=== PATIENT | female | born 1935 | race Caucasian/White ===

== ENCOUNTER 2017-02-11 07:49 | Day surgery (SDC) | payer MEDICARE, BC ==
--- NOTE | 2017-02-04 10:20 | HISTORY AND PHYSICAL E ---
History and Physical NAME: ISHMAEL YEE : 1935 AGE: 81Y ADMITTED: 02/11/2017 ROOM: REASON FOR ADMISSION: Patient presented with exacerbation of reflux and hiatus hernia. She is for upper endoscopy. She did have a 5-cm hiatus hernia. SOCIAL HISTORY: She is a . She does not smoke. She does not drink. PAST MEDICAL HISTORY: She did have upper and lower scope in 2008 showing a large hiatus hernia with diverticulosis. She has a history of reflux and hiatus hernia. MEDICATIONS: The patient takes vitamins and fish oil. PHYSICAL EXAMINATION: GENERAL: Pleasant, alert, oriented. VITAL SIGNS: Blood pressure 130/60, pulse 80, respirations 18, temp 98. HEENT: Normal. NECK: Supple. CARDIOVASCULAR: Normal. LUNGS: Clear. ABDOMEN: Soft. NEUROLOGIC: Exam negative. CONCLUSIONS: 1. Large hiatus hernia. 2. Reflux. PLAN: 1. Gallbladder ultrasound. 2. Upper endoscopy, admit 02/11/2017. DICTATING PHYSICIAN: KYRA SOOD M.D. [id number] [id number] PHY#: [id number] ID: [id number] JOB#: [id number] ACCT: [id number] cc: >
--- NOTE | 2017-02-04 10:22 | HISTORY AND PHYSICAL E ---
History and Physical NAME: ISHMAEL YEE : 1935 AGE: 81Y ADMITTED: 02/11/2017 ROOM: CHIEF COMPLAINT: 1. Reflux. 2. Large hiatal hernia. HISTORY: Patient known to me. I saw her in 2008, where she did have large hiatal hernia, 5 cm, gastroesophageal reflux. She did have erosions in her hiatal hernia sac, no ulcers, mild duodenitis, and mild esophagitis. At this time, the patient presents for upper endoscopy. She did have colon exam showing sigmoid diverticulosis and 2 shelly polyps, too small to biopsy, polyps 2 mm; this was done in 05/2009. Now, she presents with exacerbation of reflux. The patient is an elderly female with nausea, epigastric abdominal pain. PAST MEDICAL HISTORY: 1. Anemia. 2. Hiatal hernia. FAMILY HISTORY: Father had an accident, passed. Her mom with CA of the lung. REVIEW OF SYSTEMS: CARDIAC: Negative. GASTROINTESTINAL: Hiatal hernia. Nausea. Abdominal pain. PHYSICAL EXAMINATION: END OF DICTATION. DICTATING PHYSICIAN: KYRA SOOD M.D. [id number] PHY#: [id number] ID: [id number] JOB#: [id number] ACCT: [id number] cc:KYRA SOOD M.D. >
[~2017-02-11 07:49] MED LIST: EPINEPHRINE INJ 1 MG/10 ML DISP.SYRIN ONE; FENTANYL CITRATE INJ/PF 100 MCG/2 ML AMPUL ONE; FLUMAZENIL INJ 0.5 MG/5 ML VIAL IV ONE; GLYCOPYRROLATE INJ 0.4 MG/2 ML VIAL ONE; MIDAZOLAM 2 MG/2 ML INJ ONE; NALOXONE HCL INJ/PF 0.4 MG/1 ML SDV ONE; ONDANSETRON HCL INJ/PF 4 MG/2 ML SDV ONE
[2017-02-11 09:26] VITALS: BP 123/64
[2017-02-11 09:45] LABS: ABSOLUTE BASOPHILS # (AUTO) 0.1 10^3/uL (0.0-0.2); ABSOLUTE EOSINOPHILS # (AUTO) 0.1 10^3/uL (0.0-0.6); ABSOLUTE LYMPHOCYTES (AUTO) 1.9 10^3/uL (0.5-4.7); ABSOLUTE MONOCYTES (AUTO) 0.6 10^3/uL (0.1-1.4); ABSOLUTE NEUT (AUTO) 3.1 10^3/uL (1.7-8.2); BASOPHILS % (AUTO) 0.9 % (0-2); EOSINOPHILS % (AUTO) 2.4 % (0-6); HEMATOCRIT 39.8 % (36.0-47.0); HEMOGLOBIN 13.6 g/dL (12.0-15.5); LYMPHOCYTES % (AUTO) 32.9 % (13-45); MEAN CORPUSCULAR HEMOGLOBIN 31.9 pg (27.0-33.4); MEAN CORPUSCULAR HGB CONC 34.1 g/dL (32.0-36.0); MEAN CORPUSCULAR VOLUME 93 fl (80-97); MONOCYTES % (AUTO) 9.8 % (3-13); RED BLOOD COUNT 4.26 10^6/uL (3.72-5.28); RED CELL DISTRIBUTION WIDTH 13.8 % (11.5-14.0); WHITE BLOOD COUNT 5.8 10^3/uL (4.0-10.5)
[2017-02-11 09:57] LABS: ALANINE AMINOTRANSFERASE 30 U/L (9-52); ALBUMIN 3.7 g/dL (3.5-5.0); ALKALINE PHOSPHATASE 81 U/L (38-126); AMYLASE 93 U/L (30-110); ANION GAP 10 (5-19); ASPARTATE AMINO TRANSFERASE 28 U/L (14-36); BILIRUBIN,DIRECT 0.1 mg/dL (0.0-0.4); BILIRUBIN,TOTAL 0.5 mg/dL (0.2-1.3); BLOOD UREA NITROGEN 14 mg/dL (7-20); CALCIUM 9.2 mg/dL (8.4-10.2); CARBON DIOXIDE 26 mmol/L (22-30); CHLORIDE 107 mmol/L (98-107); CREATININE RESULT 0.85 mg/dL (0.52-1.25); GLUCOSE 180 mg/dL (75-110); LIPASE 169.6 U/L (23-300); POTASSIUM 4.6 mmol/L (3.6-5.0); SODIUM 143.3 mmol/L (137-145); TOTAL PROTEIN 6.3 g/dL (6.3-8.2)
--- NOTE | 2017-02-11 14:28 | DISCHARGE SUMMARY E ---
Discharge Summary NAME: ISHMAEL YEE : 1935 AGE: 81Y ADMITTED: 02/11/2017 DISCHARGED: 02/11/2017 PROCEDURE: EGD. HISTORY AND HOSPITAL COURSE: An 81-year-old female with large hernia, exacerbation of reflux, was found to have . FINDINGS: Upper scope today shows no ulcers, no malignancy, mild esophagitis, with large hiatus hernia. DISCHARGE PLAN: 1. Soft low-residual diet. 2. Hold aspirin and nonsteroidal 4 to 5 days. 3. Awaiting biopsy/lab results. 4. Patient to be started on omeprazole 20 mg p.o. b.i.d. 5. Patient to see us in the office in the next few days. DICTATING PHYSICIAN: KYRA SOOD M.D. [id number] PHY#: [id number] ID: [id number] JOB#: [id number] ACCT: [id number] cc:KYRA SOOD M.D. >
--- NOTE | 2017-02-11 14:32 | OPERATIVE REPORT E ---
Operative Report NAME: ISHMAEL YEE : 1935 AGE: 81Y DATE OF SURGERY: 02/11/2017 ROOM: PREOPERATIVE DIAGNOSIS: PATIENT WITH REFLUX, HIATUS HERNIA. POSTOPERATIVE DIAGNOSES: 1. LARGE HIATUS HERNIA - EXTENDED FROM 31 CM TO 37 CM (A 6 CM SLIDING HIATUS HERNIA). NO EVIDENCE OF MALIGNANCY. 2. MILD ESOPHAGITIS. 3. MILD GASTRITIS. 4. MILD DUODENITIS. OPERATION: 1. ESOPHAGOSCOPY. 2. GASTROSCOPY. 3. DUODENOSCOPY. SURGEON: KYRA SOOD M.D. ANESTHESIA: Versed 2, fentanyl 50. TISSUE REMOVED OR ALTERED: Gastric biopsy - H. pylori. DESCRIPTION OF PROCEDURE: Baby scope passed under guided vision; no difficulties. Esophagoscopy: (Junction at 31 cm) - large hiatus hernia; extended 31 cm to 37 cm. No ulcers. No bleeding. No cancer. Gastroscopy: Mild gastritis. Gastric biopsy obtained - H. pylori. Duodenoscopy: Duodenal bulb shows no ulcers. Descending duodenum was not visualized. No evidence of duodenal ulcer. CONCLUSION: LARGE HIATUS HERNIA WITH MILD ESOPHAGITIS, MILD GASTRITIS. PLAN: Awaiting biopsy results. Will obtain liver functions, amylase, lipase, CBC. DICTATING PHYSICIAN: KYRA SOOD M.D. [id number] Y#: [id number] ID: [id number] JOB#: [id number] ACCT: [id number] cc:KYRA SOOD M.D., SWETANG M.D. >
== END 2017-02-11 09:38 | disposition home or self-care (01) ==
LOC: END 07:49
PROVIDERS: ATTEND Specialist
PROC: 0DB68ZX Excision of Stomach, Via Natural or Artificial Opening Endoscopic, Diagnostic (ICD-10-PCS; principal; 2017-02-11 08:00)
DX: K44.9 Diaphragmatic hernia without obstruction or gangrene (principal); K21.0 Gastro-esophageal reflux disease with esophagitis; K31.9 Disease of stomach and duodenum, unspecified; K29.80 Duodenitis without bleeding
CPT/HCPCS: 43239; 36415; 82150; 83690; 85025; 80053; 88342 ×2; 88305 ×2; J2250; J3010; J0171; J2310; J2405; J3490

== ENCOUNTER 2017-05-19 05:26 | Day surgery (SDC) | payer MEDICARE, BC ==
[2017-05-14 09:51] LABS: HEMATOCRIT 42.2 % (36.0-47.0); HEMOGLOBIN 14.1 g/dL (12.0-15.5); HGB HCT DIFFERENCE 0.1; MEAN CORPUSCULAR HEMOGLOBIN 31.6 pg (27.0-33.4); MEAN CORPUSCULAR HGB CONC 33.5 g/dL (32.0-36.0); MEAN CORPUSCULAR VOLUME 94 fl (80-97); RED BLOOD COUNT 4.47 10^6/uL (3.72-5.28); WHITE BLOOD COUNT 6.3 10^3/uL (4.0-10.5)
[2017-05-14 10:24] LABS: ALANINE AMINOTRANSFERASE 29 U/L (9-52); ALBUMIN 3.9 g/dL (3.5-5.0); ALKALINE PHOSPHATASE 82 U/L (38-126); ANION GAP 10 (5-19); ASPARTATE AMINO TRANSFERASE 26 U/L (14-36); BILIRUBIN,DIRECT 0.3 mg/dL (0.0-0.4); BILIRUBIN,TOTAL 0.7 mg/dL (0.2-1.3); BLOOD UREA NITROGEN 13 mg/dL (7-20); CALCIUM 9.4 mg/dL (8.4-10.2); CARBON DIOXIDE 27 mmol/L (22-30); CHLORIDE 107 mmol/L (98-107); CREATININE RESULT 0.89 mg/dL (0.52-1.25); GLUCOSE 105 mg/dL (75-110); POTASSIUM 5.2 mmol/L (3.6-5.0); SODIUM 143.5 mmol/L (137-145); TOTAL PROTEIN 6.9 g/dL (6.3-8.2)
--- NOTE | 2017-05-14 13:12 | EKG REPORT ---
SEVERITY:- NORMAL ECG - SINUS RHYTHM : Confirmed by: Dave Rivera MD 14-May-2017 13:12:17
[~2017-05-19 05:26] MED LIST changes: +ACETAMINOPHEN 325 MG TABLET PO PRN; +CEFAZOLIN 1 GM/D5W RTU 1 GM/50 ML RTUPB IV PRN; -EPINEPHRINE INJ 1 MG/10 ML DISP.SYRIN ONE; -FENTANYL CITRATE INJ/PF 100 MCG/2 ML AMPUL ONE; -FLUMAZENIL INJ 0.5 MG/5 ML VIAL IV ONE; -GLYCOPYRROLATE INJ 0.4 MG/2 ML VIAL ONE; +LACTATED RINGERS 1000 ML IV PRN; -MIDAZOLAM 2 MG/2 ML INJ ONE; -NALOXONE HCL INJ/PF 0.4 MG/1 ML SDV ONE; -ONDANSETRON HCL INJ/PF 4 MG/2 ML SDV ONE
[2017-05-19] MEDS ORDERED: FENTANYL CITRATE INJ/PF 100 MCG/2 ML AMPUL ONE (06:27)
[2017-05-19] MEDS ORDERED: MIDAZOLAM 2 MG/2 ML INJ ONE (06:28)
[2017-05-19] MEDS ORDERED: DEXMEDETOMIDINE INJ 80 MCG/20 ML VIAL IV ONE (06:28)
[2017-05-19] MEDS ORDERED: EPHEDRINE SULFATE INJ 50 MG/1 ML AMPULE ONE (06:28)
[2017-05-19] MEDS ORDERED: PROPOFOL INJ 200 MG/20 ML VIAL IV ONE (06:28)
[2017-05-19] MEDS ORDERED: ACETAMINOPHEN 100 ML IV ONE (06:28)
[2017-05-19] MEDS ORDERED: MORPHINE SULFATE 10 MG/ML INJ ONE (06:29)
[2017-05-19] MEDS ORDERED: BUPIVACAINE HCL 0.25 % INJ/PF (2.5 MG/1 ML) 30 ML VIAL ONE (06:45)
[2017-05-19] MEDS ORDERED: MORPHINE SULFATE 10 MG/ML INJ IV PRN (07:43)
[2017-05-19] MEDS ORDERED: FENTANYL CITRATE INJ/PF 100 MCG/2 ML AMPUL IV PRN ×3 (07:43)
[2017-05-19] MEDS ORDERED: MEPERIDINE HCL/PF INJ 25 MG/1 ML DISP.SYRIN IV PRN (07:43)
[2017-05-19] MEDS ORDERED: DIPHENHYDRAMINE HCL 50 MG/ML VIAL IV PRN (07:43)
[2017-05-19] MEDS ORDERED: PROMETHAZINE HCL INJ 25 MG/1 ML VIAL IV PRN ×2 (07:43)
[2017-05-19] MEDS ORDERED: OXYCODONE-ACETAMINOPHEN 5-325 MG TABLET PO PRN ×2 (07:43)
--- NOTE | 2017-05-19 08:16 | Operative Report ---
Operative Report DATE OF SURGERY: 05/19/17 PREOPERATIVE DIAGNOSIS: Symptomatic cholelithiasis with cholecystitis POSTOPERATIVE DIAGNOSIS: Same. Umbilical hernia with incarcerated omentum OPERATION: 1. Cholecystectomy. 2. Laparoscopic primary umbilical herniorrhaphy SURGEON: ELDER CHILEL SHAREPOINT ENGINEER: LUIS M WEBBER ANESTHESIA: GA TISSUE REMOVED OR ALTERED: 1 gallbladder contents COMPLICATIONS: None ESTIMATED BLOOD LOSS: Scant INTRAOPERATIVE FINDINGS: See below PROCEDURE: The patient was taken to the preop holding area the main operating room and general anesthesia was induced. Arms were abducted, abdomen exposed, prepped draped sterile fashion. Instrumentation set up for laparoscopic cholecystectomy Surgical plan and surgical timeout were conducted A supraumbilical vertical incision was made with a knife after quarter percent Marcaine anesthesia was injected. Veress needle was inserted peritoneal cavity pneumoperitoneum was established. Veress needle was removed, and a 5 mm port inserted and 5 mm viewing scope was inserted. Under direct visualization 3 additional ports were placed one in the soft xiphoid and 2 in the subcostal position. Findings were significant for omentum stuck to the umbilicus. On further inspection was discussed with the patient had a umbilical hernia approximately 1 /2-2 cm in diameter. This was just below the supraumbilical port site insertion. Grafts were placed on the gallbladder, and reflected up of the liver bed. Minimal adhesions between the gallbladder and the gastroduodenal fatty tissue taken down with sharp and electrocautery dissection all under direct visualization. The neck of the gallbladder its junction with the cystic duct was dissected out. [place] was opened widely. Cystic artery cystic duct and the usual location were dissected out very nicely, critical view obtained, photographs acquired, the duct and cystic artery were each respectively clipped twice proximally once distally and divided with scissors. The gallbladder was then removed from the liver bed using hook cautery dissection. Described the patient is umbilical port site uneventfully without spillage of stones or bile. We then returned to the peritoneal cavity and using combination of traction and electrocautery, we reduce the small tongue of omentum that was stuck into the umbilical hernia. We then closed the 1/2-2 cm fascial defect with 0 PDS suture using a percutaneous disposable suture passer. This effectively closed the fascial defect. Photographs were taken. We inspected the omentum to ensure there was no significant bleeding and there was none. [place] the operation was complete. We reinspected the sub-hepatic space and there is no bleeding. [place] on the cystic artery and cystic duct stump in good position. Pneumoperitoneum evacuated, wounds closed with 3-0 Vicryl benzoin and Steri-Strips. Patient tolerated the procedure well, extubated and taken to recovery in stable condition. The physician elder assistant, Ms. Webber, provided assistance during this case by: Assisting and port insertion, retracting tissue, instillation of local anesthesia and closure of skin incisions.
--- NOTE | 2017-05-19 08:20 | PDOC DISCHARGE SUMMARY ---
Discharge Summary (SDC) - Discharge Final Diagnosis: cholecystitis Date of Surgery: 05/19/17 Discharge Date: 05/19/17 Condition: Stable Treatment or Instructions: [facility] [address], [place] [address] Discharge Instructions: Laparoscopic Surgery 1. General Information: a. DO NOT DRIVE a car or operate dangerous machinery for 3-4 days or while taking narcotic pain pills. b. DO NOT consume alcohol, tranquilizers, sleeping medications or any non- prescribed medications for 24 hours unless approved by your doctor or as long as taking narcotic prescription medications. c. DO NOT make important decisions or sign any important papers for the first 24 hours after surgery. d. When discharged home the same day of surgery have a responsible person with you for the first night. 2. Activity Restrictions: 4 weeks. a. NO heavy lifting, straining abdominal muscles, bending over a lot, yard work, house work, or sports for [address]. [address] for 3-4 days or while taking __Tylenol #3_ . c. It is fine to go for walks, up and down steps, ride in a car. d. Elevate your head when sleeping/resting. 3. Treatment: a. You may shower 24 hours after surgery, no baths or swimming for 2 weeks. Remove band-aids or dressings before shower but leave paper strips (steri-strips ) on the skin to fall off on their own. If still on at postoperative visit they will be removed then. b. Drainage of fluid or blood is not unusual from an incision. If occurs, you can clean with peroxide and cotton ball daily and cover with dry gauze until the wound seals. c. If a lot of bleeding occurs, you can hold pressure with a gauze or cloth over the site for 10 minutes and it will usually stop. If bleeding continues you will need to call for possible evaluation in office or emergency room. 4. Medications: a. __Tylenol #3_ may be taken for pain as needed, one tablet every 6 hours. Stop the narcotic when able since you cannot take it and drive, and they cause constipation. You may switch to plain Advil or Aleve as you transition from the narcotic. Many adults find good pain relief with Advil 600-800 mg three times a day with meals. This can cause indigestion, ulcers, and kidney problems with long-term use. b. You should resume all normal medications unless a change is specified by your doctors. c. Antibiotic(s) if needed ( NONE) 5. Diet: Begin with clear liquids and may progress to your normal diet if not nauseated. No high fat, high protein foods the day of surgery. 6. The following may occur after laparoscopic surgery: a. Shoulder or upper back ache from retained gas that should resolve in 1-2 days b. Soreness and bruising at incision sites will resolve with time. c. Scrotal swelling (labia in women) and bruising is often seen after hernia surgery. d. Sore throat e. Fatigue may last days to weeks. f. Difficulty urinating may occur and may need to come into emergency room for urinary catheter placement. 7. Notify Physician If: a. Worsening or pain not improved with pain medication b. Persistent nausea and vomiting c. Fever above 101 d. Persistent bleeding or swelling at operative site e. Unable to urinate and uncomfortable bladder 6-8 hours after surgery 8..Follow Up Care: a. Schedule a follow up appointment with your doctor for 2 weeks. In the event of any postoperative problems or questions or you may call the office during business hours or the On-Call physician evenings and weekends at [facility]. [facility] I understand the instructions for my postoperative care as described above and a copy has been given to me. Patient/Significant Other Witness Date Prescriptions: Acetaminophen with Codeine [Tylenol #3 Tablet] 1 each PO Q6HP PRN #20 tablet PRN Reason: Discharge Diet: As Tolerated Discharge Activity: Activity As Tolerated Report the Following to Your Physician Immediately: Fever over 101 Degrees, Redness, Swelling, Warmth, Drainage-Foul Smelling
[2017-05-19] MEDS ORDERED: ACETAMINOPHEN WITH CODEINE #3 TABLET ONE (09:58)
[2017-05-19 11:17] VITALS: BP 119/68
[2017-05-19] MEDS ORDERED: GLYCOPYRROLATE INJ 0.4 MG/2 ML VIAL ONE (12:47)
[2017-05-19] MEDS ORDERED: DEXAMETHASONE SOD PHOSPHATE INJ 4 MG/1 ML VIAL ONE (12:47)
[2017-05-19] MEDS ORDERED: KETOROLAC TROMETHAMINE 60 MG/2 ML SDV ONE (12:47)
[2017-05-19] MEDS ORDERED: PHENYLEPHRINE HCL INJ/PF 10 MG/1 ML SDV ONE (12:47)
[2017-05-19] MEDS ORDERED: LIDOCAINE 2% INJ-PF (20 MG/ML) 10 ML AMPUL ONE (12:47)
[2017-05-19] MEDS ORDERED: ROCURONIUM BROMIDE INJ 50 MG/5 ML VIAL IV ONE (12:47)
[2017-05-19] MEDS ORDERED: NEOSTIGMINE METHYLSULFATE 10 MG/10 ML VIAL ONE (12:47)
[2017-05-19] MEDS ORDERED: ONDANSETRON HCL INJ/PF 4 MG/2 ML SDV ONE (12:47)
== END 2017-05-19 11:00 | disposition home or self-care (01) ==
LOC: OROUT 05:26
PROVIDERS: ATTEND Surgery
PROC: 0WQF4ZZ Repair Abdominal Wall, Percutaneous Endoscopic Approach (ICD-10-PCS; principal; 2017-05-19 07:30)
PROC: 0FT44ZZ Resection of Gallbladder, Percutaneous Endoscopic Approach (ICD-10-PCS; 2017-05-19 07:30)
DX: K80.10 Calculus of gallbladder with chronic cholecystitis without obstruction (principal); K42.0 Umbilical hernia with obstruction, without gangrene; R42 Dizziness and giddiness; Z79.899 Other long term (current) drug therapy
CPT/HCPCS: 93005; 36415 ×2; 84132; 85027; 80076; 80048; 88304 ×2; 93010; 49653; 47562; A9270; J2250; J0690; J3490 ×3; J1100; J1885; J3010; J2370; J2405; J2704; J0131; 790; J2270

== ENCOUNTER 2018-02-10 11:40 | Day surgery (SDC) | payer MEDICARE, BC ==
[~2018-02-10 11:40] MED LIST changes: -ACETAMINOPHEN 325 MG TABLET PO PRN; -CEFAZOLIN 1 GM/D5W RTU 1 GM/50 ML RTUPB IV PRN; +CHONDR SU A NA/HYALUR INTRAOC KIT (SURGICARE) ONE; +EPINEPHRINE INJ/PF 1 MG/1 ML AMPULE ONE; -LACTATED RINGERS 1000 ML IV PRN; +LIDOCAINE 1% INJ-PF (10 MG/ML) 30 ML SDV ONE
[2018-02-10] MEDS: TROPICAMIDE 1% OPH SOLN 3 ML OS PRN ×3 (11:49→12:17)
[2018-02-10] MEDS: CYCLOPENTOLATE 0.2%/PHENYLEPHRINE 1% OPH SOLN 2 ML OS PRN ×3 (11:49→12:17)
[2018-02-10] MEDS: BESIFLOXACIN HCL 0.6% OPH SUSP 5 ML BOTTLE OS PRN ×3 (11:50→12:48)
[2018-02-10] MEDS: KETOROLAC TROMETHAMINE 0.45% 4 DROP/0.4 ML DROPERETTE OS PRN ×2 (11:50→13:20)
[2018-02-10] MEDS: TETRACAINE HCL 0.5% OPH SOLN 2 ML OS PRN ×3 (11:51→12:25)
[2018-02-10] MEDS ORDERED: FENTANYL CITRATE INJ/PF 100 MCG/2 ML AMPUL ONE (12:18)
[2018-02-10] MEDS ORDERED: MIDAZOLAM 2 MG/2 ML INJ ONE (12:18)
--- NOTE | 2018-02-10 19:24 | [facility] DISCHARGE SUMMARY E ---
[facility] Discharge Summary NAME: ISHMAEL YEE AGE: 82Y ADMITTED: 02/10/2018 DISCHARGED: 02/10/2018 HOSPITAL COURSE: This is an 82-year-old patient who underwent cataract extraction complex of the left eye. DIAGNOSES: 1. CATARACT, LEFT EYE. 2. PUPIL MIOSIS REQUIRING MALYUGIN RING. The patient underwent surgery because she was having difficulty driving at night secondary to glare from headlights. DISCHARGE INSTRUCTIONS: She should be on a regular diet. No bending at the waist, no heavy lifting. She should use her Besivance, Ilevro, and Durezol at 3 p.m. and 8 p.m. and sleep with a rigid shield. I will see her for her 1 day postoperative tomorrow. DICTATING PHYSICIAN: RICK BARRIOS M.D. [id number] [id number] PHY#: [id number] ID: [id number] JOB#: [id number] ACCT: [id number] cc:RICK BARRIOS M.D. >
--- NOTE | 2018-02-10 19:24 | [facility] OPERATIVE REPORT E ---
[facility] Operative Report NAME: ISHMAEL YEE AGE: 82Y DATE OF SURGERY: 02/10/2018 ROOM: PREOPERATIVE DIAGNOSIS: 1. CATARACT, LEFT EYE. 2. PUPIL MIOSIS, LEFT EYE. POSTOPERATIVE DIAGNOSIS: 1. CATARACT, LEFT EYE. 2. PUPIL MIOSIS, LEFT EYE. OPERATION: Complex cataract extraction with use of a Malyugin ring due to very miotic pupil, intraocular lens implant of the left eye. SURGEON: RICK BARRIOS M.D. ANESTHESIA: Topical. PROCEDURE: After obtaining appropriate consent, the patient's left eye was prepped and draped in sterile fashion as well as the surgeon in a sterile manner and cataract surgery was started. First a paracentesis blade was used to make a small side-port incision. Viscoelastic was used to inflate the anterior chamber. Next a 2.4 mm incision was made with the paracentesis blade. A continuous capsulorrhexis incision was made using a cystotome and Utrata forceps. Following this hydrodissection was carried out to make the lens fully loose and mobile and it was rotated 90 degrees. Following this, a qkzjww-uii-kzspnrj technique was used to phacoemulsify the lens with a CDE of 12.21. The remaining cortex was removed with irrigation/aspiration. Provisc was instilled into the capsular bag to inflate the bag. A SN60WF, 23.0 diopter lens was placed. The remaining viscoelastic material was removed with irrigation/aspiration. Following this, a 10-0 nylon suture was used to close the incision and it was found to be watertight. Vigamox was instilled in the eye and a protective shield was placed over the eye. The patient returned to the postoperative recovery in stable condition. Prior to making the capsulorrhexis a Malyugin ring was inserted due to very poor pupillary dilatation. This was removed at the end of the case. DICTATING PHYSICIAN: RICK BARRIOS M.D. [id number] [id number] PHY#: [id number] ID: [id number] JOB#: [id number] ACCT: [id number] cc:RICK BARRIOS M.D. >
== END 2018-02-10 13:33 | disposition home or self-care (01) ==
LOC: SC 11:40
PROVIDERS: ATTEND Internal Medicine
PROC: 08RK3JZ Replacement of Left Lens with Synthetic Substitute, Percutaneous Approach (ICD-10-PCS; principal; 2018-02-10 13:00)
DX: H25.13 Age-related nuclear cataract, bilateral (principal); H57.03 Miosis; H04.123 Dry eye syndrome of bilateral lacrimal glands; H43.813 Vitreous degeneration, bilateral; D64.9 Anemia, unspecified; Z79.899 Other long term (current) drug therapy
CPT/HCPCS: 66982; V2632; J2250; J3490 ×2; A9270; J0171; J3010; 142

== ENCOUNTER 2018-03-03 07:13 | Day surgery (SDC) | payer MEDICARE, BC ==
[~2018-03-03 07:13] MED LIST changes: -CHONDR SU A NA/HYALUR INTRAOC KIT (SURGICARE) ONE; -EPINEPHRINE INJ/PF 1 MG/1 ML AMPULE ONE; +KETOROLAC TROMETHAMINE 0.45% 4 DROP/0.4 ML DROPERETTE OD PRN; -LIDOCAINE 1% INJ-PF (10 MG/ML) 30 ML SDV ONE
[2018-03-03] MEDS ORDERED: LIDOCAINE 1% INJ-PF (10 MG/ML) 30 ML SDV ONE (07:40)
[2018-03-03] MEDS ORDERED: CHONDR SU A NA/HYALUR INTRAOC KIT (SURGICARE) ONE (07:40)
[2018-03-03] MEDS ORDERED: EPINEPHRINE INJ/PF 1 MG/1 ML AMPULE ONE (07:40)
[2018-03-03] MEDS: TETRACAINE HCL 0.5% OPH SOLN 2 ML OD PRN ×3 (07:44→08:12)
[2018-03-03] MEDS: TROPICAMIDE 1% OPH SOLN 3 ML OD PRN ×3 (07:44→08:02)
[2018-03-03] MEDS: BESIFLOXACIN HCL 0.6% OPH SUSP 5 ML BOTTLE OD PRN ×3 (07:44→08:38)
[2018-03-03] MEDS: CYCLOPENTOLATE 0.2%/PHENYLEPHRINE 1% OPH SOLN 2 ML OD PRN ×3 (07:44→08:02)
[2018-03-03] MEDS ORDERED: FENTANYL CITRATE INJ/PF 100 MCG/2 ML AMPUL ONE (07:58)
[2018-03-03] MEDS ORDERED: MIDAZOLAM 2 MG/2 ML INJ ONE (07:58)
[2018-03-03] MEDS ORDERED: ONDANSETRON HCL INJ/PF 4 MG/2 ML SDV ONE (07:58)
[2018-03-03] MEDS ORDERED: LIDOCAINE 2% INJ-PF (100 MG/5 ML) SYRINGE ONE (08:49)
--- NOTE | 2018-03-03 15:18 | [facility] DISCHARGE SUMMARY E ---
[facility] Discharge Summary NAME: ISHMAEL YEE AGE: 82Y ADMITTED: 03/03/2018 DISCHARGED: 03/03/2018 HOSPITAL COURSE: This is an 82-year-old female who underwent complex cataract extraction with use of a Malyugin ring due to pupil miosis. DIAGNOSES: 1. CATARACT, RIGHT EYE. 2. PUPIL MIOSIS, RIGHT EYE. The patient underwent surgery because she was having difficulty with increased glare from headlights making it difficult to drive at night. DISCHARGE INSTRUCTIONS: She should be on a regular diet. No bending at her waist, no heavy lifting. She should use her Besivance, Ilevro, and Durezol at 3 p.m. and 8 p.m. and sleep with a rigid shield. I will see her for her 1 day postoperative tomorrow. DICTATING PHYSICIAN: RICK BARRIOS M.D. [id number] PHY#: [id number] ID: [id number] JOB#: [id number] ACCT: [id number] cc:RICK BARRIOS M.D. >
--- NOTE | 2018-03-03 15:18 | [facility] OPERATIVE REPORT E ---
[facility] Operative Report NAME: ISHMAEL YEE AGE: 82Y DATE OF SURGERY: 03/03/2018 ROOM: PREOPERATIVE DIAGNOSES: 1. CATARACT, RIGHT EYE. 2. PUPIL MIOSIS, RIGHT EYE. POSTOPERATIVE DIAGNOSES: 1. CATARACT, RIGHT EYE. 2. PUPIL MIOSIS, RIGHT EYE. OPERATION: Complex cataract extraction with use of a Malyugin ring. SURGEON: RICK BARRIOS M.D. ANESTHESIA: Topical. PROCEDURE: After obtaining appropriate consent, the patient's right eye was prepped and draped in sterile fashion as well as the surgeon in a sterile manner and cataract surgery was started. First a paracentesis blade was used to make a small side-port incision. Viscoelastic was used to inflate the anterior chamber. Next a 2.4 mm incision was made with the paracentesis blade. A continuous capsulorrhexis incision was made using a cystotome and Utrata forceps. Following this hydrodissection was carried out to make the lens fully loose and mobile and it was rotated 90 degrees. Following this, a zlnmpx-lvo-ectvcba technique was used to phacoemulsify the lens with a CDE of 7.05. The remaining cortex was removed with irrigation/aspiration. Provisc was instilled into the capsular bag to inflate the bag. A SN60WF, 23.5 diopter lens was placed. The remaining viscoelastic material was removed with irrigation/aspiration. Following this, a 10-0 nylon suture was used to close the incision and it was found to be watertight. Vigamox was instilled in the eye and a protective shield was placed over the eye. The patient returned to the postoperative recovery in stable condition. Prior to making the capsulorhexis a Malyugin ring was inserted due to poor pupillary miosis. This was removed at the end of the case. DICTATING PHYSICIAN: RICK BARRIOS M.D. [id number] [id number] PHY#: [id number] ID: [id number] JOB#: [id number] ACCT: [id number] cc:RICK BARRIOS M.D. >
== END 2018-03-03 09:52 | disposition home or self-care (01) ==
LOC: SC 07:13
PROVIDERS: ATTEND Internal Medicine
DX: H25.11 Age-related nuclear cataract, right eye (principal); H57.03 Miosis; H43.812 Vitreous degeneration, left eye; Z96.1 Presence of intraocular lens
CPT/HCPCS: 66982; V2632; J2250; J3490 ×2; A9270; J0171; J2001; J2405; 142; J3010

== ENCOUNTER → 2019-04-06 | Outpatient (CLI) | payer MEDICARE ==
[2019-04-06 11:40] LABS: ABSOLUTE BASOPHILS # (AUTO) 0.1 10^3/uL (0.0-0.2); ABSOLUTE EOSINOPHILS # (AUTO) 0.1 10^3/uL (0.0-0.6); ABSOLUTE LYMPHOCYTES (AUTO) 2.3 10^3/uL (0.5-4.7); ABSOLUTE MONOCYTES (AUTO) 0.9 10^3/uL (0.1-1.4); ABSOLUTE NEUT (AUTO) 6.4 10^3/uL (1.7-8.2); BASOPHILS % (AUTO) 1.2 % (0-2); EOSINOPHILS % (AUTO) 0.6 % (0-6); HEMATOCRIT 40.4 % (36.0-47.0); HEMOGLOBIN 13.6 g/dL (12.0-15.5); MEAN CORPUSCULAR HEMOGLOBIN 31.8 pg (27.0-33.4); MEAN CORPUSCULAR HGB CONC 33.8 g/dL (32.0-36.0); MEAN CORPUSCULAR VOLUME 94 fl (80-97); MONOCYTES % (AUTO) 9.1 % (3-13); PLATELET COUNT 189 10^3/uL (150-450); RED CELL DISTRIBUTION WIDTH 13.8 % (11.5-14.0); SEGMENTED NEUTROPHILS % (AUTO) 65.1 % (42-78); TOTAL CELLS COUNTED % (AUTO) 100 %; WHITE BLOOD COUNT 9.8 10^3/uL (4.0-10.5)
--- NOTE | 2019-04-06 12:06 | RADIOLOGY REPORT (SQ) ---
EXAM DESCRIPTION: CT ABD/PELVIS WITH IV ONLY COMPLETED DATE/TIME: 04/06/2019 11:22 am REASON FOR STUDY: R10.32 LLQ PAIN R10.32 LEFT LOWER QUADRANT PAIN COMPARISON: None. TECHNIQUE: CT scan of the abdomen and pelvis performed using helical scanning technique with dynamic intravenous contrast injection. No oral contrast. Images reviewed with lung, soft tissue, and bone windows. Reconstructed coronal and sagittal MPR images reviewed. Delayed images for evaluation of the urinary system also acquired. All images stored on PACS. All CT scanners at this facility use dose modulation, iterative reconstruction, and/or weight based d osing when appropriate to reduce radiation dose to as low as reasonably achievable (ALARA). [facility]: Dose Right [facility]: CareDose [facility]: Dose Right [facility]: Teradose 4D [facility]: 5 CUPS and some sugar CONTRAST TYPE AND DOSE: contrast/concentration: Isovue 350.00 mg/ml; Total Contrast Delivered: 77.0 ml; Total Saline Delivered: 67.0 ml RENAL FUNCTION: Creatinine 0.9 RADIATION DOSE: CT Rad equipment meets quality standard of care and radiation dose reduction techniq ues were employed. CTDIvol: 9.3 - 10.6 mGy. DLP: 983 mGy-cm.. LIMITATIONS: None. FINDINGS: LOWER CHEST: Large hiatal hernia. LIVER: Normal size. No masses. No dilated ducts. SPLEEN: Normal size. No focal lesions. PANCREAS: No masses. No significant calcifications. No adjacent inflammation or peripancreatic fluid collections. Pancreatic duct not dilated. GALLBLADDER: Surgically absent. ADRENAL GLANDS: No significant masses or asymmetry. RIGHT KIDNEY AND URETER: No solid masses. No significant calcifications. No hydronephrosis or hyd roureter. LEFT KIDNEY AND URETER: No solid masses. No significant calcifications. No hydronephrosis or hydr oureter. AORTA AND VESSELS: No aneurysm. No dissection. Renal arteries, SMA, celiac without stenosis. RETROPERITONEUM: No retroperitoneal adenopathy, hemorrhage or masses. BOWEL AND PERITONEAL CAVITY: No masses or inflammatory changes. No free fluid or peritoneal masses. APPENDIX: Normal. PELVIS: No mass. No free fluid. Normal bladder. ABDOMINAL WALL: Small ventral hernia contains only fat. BONES: Scoliosis, degenerative disc disease. Spondylosis. OTHER: No other significant finding. IMPRESSION: Large hiatal hernia. Small ventral hernia containing fat. Osseous findings as describe d. COMMENT: Attempted unsuccessfully to call the report to the ordering physician at 2355 hours on this date. TECHNICAL DOCUMENTATION: JOB ID: [id number] Quality ID # [id number]: Final reports with documentation of one or more dose reduction techniques (e.g., Au tomated exposure control, adjustment of the mA and/or kV according to patient size, use of iterative reconstruction technique) 2010 [employer]- All Rights Reserved Reading location - IP/workstation name: [email or web address]
[2019-04-06 12:09] LABS: ALANINE AMINOTRANSFERASE 26 U/L (9-52); ALBUMIN 3.7 g/dL (3.5-5.0); ALKALINE PHOSPHATASE 89 U/L (38-126); ANION GAP 9 (5-19); ASPARTATE AMINO TRANSFERASE 24 U/L (14-36); BILIRUBIN,DIRECT 0.2 mg/dL (0.0-0.4); BILIRUBIN,TOTAL 0.4 mg/dL (0.2-1.3); BLOOD UREA NITROGEN 13 mg/dL (7-20); CALCIUM 9.9 mg/dL (8.4-10.2); CARBON DIOXIDE 25 mmol/L (22-30); CHLORIDE 109 mmol/L (98-107); GLUCOSE 111 mg/dL (75-110); LIPASE 387.1 U/L (23-300); POTASSIUM 4.4 mmol/L (3.6-5.0); SODIUM 142.9 mmol/L (137-145); TOTAL PROTEIN 6.7 g/dL (6.3-8.2)
== END ==
LOC: RAD 10:30
PROVIDERS: ATTEND Physician Assistant
DX: K44.9 Diaphragmatic hernia without obstruction or gangrene (principal); K43.9 Ventral hernia without obstruction or gangrene; R10.32 Left lower quadrant pain
CPT/HCPCS: 36415; 74177; 80053; 82565; 83690; 85025

== ENCOUNTER 2019-06-11 15:45 | Emergency (ER) | payer MEDICARE ==
[2019-06-11] MEDS ORDERED: MAG HYDROX/AL HYDROX/SIMETH SUSP 30 ML UDCUP PO ONE (17:22)
[2019-06-11] MEDS ORDERED: LIDOCAINE 2% VISCOUS SOLN 20 ML UDCUP PO ONE (17:22)
[2019-06-11] MEDS ORDERED: METOCLOPRAMIDE HCL ORAL SOLN 10 MG/10 ML UDCUP PO ONE (17:22)
--- NOTE | 2019-06-11 17:25 | ER Document Report ---
ED Medical Screen (RME) - General Chief Complaint: Epigastric Pain Stated Complaint: ABDOMINAL PAIN Time Seen by Provider: 06/11/19 17:14 Primary Care Provider: AKHIL ESTEBAN PA [Primary Care Provider] - Follow up as needed Notes: Patient is an 84-year-old female who presents to the emergency department with a chief complaint of epigastric pain. Patient states that she has had a history of a hiatal hernia since 2008. In 2006 she had a cholecystectomy with a hiatal hernia fix. She states that she saw Dr. Ngo recently and was scheduled for a EGD, but it got canceled. She ate a lot 2 nights ago and has had indigestion since then. Exam: Tenderness to mid epigastric area I have greeted and performed a rapid initial assessment of this patient. A comprehensive ED assessment and evaluation of the patient, analysis of test results and completion of medical decision making process will be conducted by an additional ED providers. TRAVEL OUTSIDE OF THE [place] IN LAST 30 DAYS: No - Related Data Allergies/Adverse Reactions: No Known Allergies Allergy (Verified 06/11/19 15:46) Past Medical History - Past Medical History Cardiac Medical History: Reports: Hx Coronary Artery Disease - high cholesterol Denies: Hx Heart Attack, Hx Hypertension Pulmonary Medical History: Denies: Hx Asthma, Hx Bronchitis, Hx COPD, Hx Pneumonia Neurological Medical History: Denies: Hx Cerebrovascular Accident, Hx Seizures GI Medical History: Denies: Hx Hepatitis, Hx Hiatal Hernia, Hx Ulcer Musculoskeltal Medical History: Denies Hx Arthritis Infectious Medical History: Denies: Hx Hepatitis Past Surgical History: Denies: Hx Hysterectomy, Hx Mastectomy, Hx Open Heart Surgery, Hx Pacemaker - Immunizations Hx Diphtheria, Pertussis, Tetanus Vaccination: Yes Physical Exam - Vital signs Vitals: Temp Pulse Resp BP Pulse Ox 98.2 F 90 19 135/61 H 90 L 06/11/19 16:05 06/11/19 16:05 06/11/19 16:06/11/19 16:06/11/19 16:05 Course - Vital Signs Vital signs: Temp Pulse Resp BP Pulse Ox 98.2 F 90 19 135/61 H 90 L 06/11/19 16:05 06/11/19 16:05 06/11/19 16:05 06/11/19 16:05 06/11/19 16:05 Doctor's Discharge - Discharge Referrals: AKHIL ESTEBAN PA [Primary Care Provider] - Follow up as needed
--- NOTE | 2019-06-11 18:13 | RADIOLOGY REPORT (SQ) ---
EXAM DESCRIPTION: ACUTE ABDOMEN SERIES COMPLETED DATE/TIME: 06/11/2019 5:50 pm REASON FOR STUDY: epigastric pain COMPARISON: 04/06/2019 NUMBER OF VIEWS: One view. TECHNIQUE: Supine radiographic image of the abdomen acquired. LIMITATIONS: None. FINDINGS: BOWEL GAS PATTERN: Non-obstructive bowel gas pattern. No dilated loops. Similar air-fluid level in the large hiatus hernia and the stomach. CALCIFICATIONS: No suspicious calcifications. SOFT TISSUES: No gross mass or suggestion of organomegaly. HARDWARE: None in the abdomen. BONES: No acute fracture. No worrisome bone lesions. OTHER: No other significant finding. IMPRESSION: Non-obstructive bowel gas pattern. No dilated loops. Similar air-fluid level in the larg e hiatus hernia and the stomach. TECHNICAL DOCUMENTATION: JOB ID: [id number] [id number] 2010 [employer]- All Rights Reserved Reading location - IP/workstation name: [email or web address]
[2019-06-11 18:30] LABS: ABSOLUTE BASOPHILS # (AUTO) 0.1 10^3/uL (0.0-0.2); ABSOLUTE LYMPHOCYTES (AUTO) 1.7 10^3/uL (0.5-4.7); BASOPHILS % (AUTO) 0.9 % (0-2); EOSINOPHILS % (AUTO) 0.1 % (0-6); HEMOGLOBIN 15.5 g/dL (12.0-15.5); MEAN CORPUSCULAR HEMOGLOBIN 31.8 pg (27.0-33.4); MEAN CORPUSCULAR HGB CONC 34.4 g/dL (32.0-36.0); MEAN CORPUSCULAR VOLUME 93 fl (80-97); MONOCYTES % (AUTO) 5.9 % (3-13); RED BLOOD COUNT 4.86 10^6/uL (3.72-5.28); RED CELL DISTRIBUTION WIDTH 13.2 % (11.5-14.0); SEGMENTED NEUTROPHILS % (AUTO) 83.1 % (42-78); TOTAL CELLS COUNTED % (AUTO) 100 %; WHITE BLOOD COUNT 16.8 10^3/uL (4.0-10.5)
[2019-06-11 18:41] LABS: PLATELET COUNT 201 10^3/uL (150-450)
[2019-06-11 18:45] LABS: ALBUMIN 4.4 g/dL (3.5-5.0); ALKALINE PHOSPHATASE 93 U/L (38-126); ANION GAP 13 (5-19); ASPARTATE AMINO TRANSFERASE 30 U/L (14-36); BILIRUBIN,DIRECT 0.2 mg/dL (0.0-0.4); BILIRUBIN,TOTAL 1.1 mg/dL (0.2-1.3); BLOOD UREA NITROGEN 19 mg/dL (7-20); CALCIUM 10.3 mg/dL (8.4-10.2); CARBON DIOXIDE 28 mmol/L (22-30); CHLORIDE 101 mmol/L (98-107); CREATINE KINASE 195 U/L (30-135); GLUCOSE 184 mg/dL (75-110); POTASSIUM 3.8 mmol/L (3.6-5.0); TOTAL PROTEIN 7.7 g/dL (6.3-8.2)
[2019-06-11 18:59] LABS: TROPONIN I < 0.012 ng/mL
[2019-06-11] MEDS ORDERED: ONDANSETRON HCL INJ/PF 4 MG/2 ML SDV ONE (20:22)
[2019-06-11] MEDS ORDERED: ONDANSETRON HCL INJ/PF 4 MG/2 ML SDV IV ONE (20:23)
[2019-06-11] MEDS ORDERED: HYDROMORPHONE HCL INJ/PF 2 MG/ML AMPULE IV ONE (20:29)
--- NOTE | 2019-06-11 20:58 | ER Document Report ---
ED General - General TRAVEL OUTSIDE OF THE [place] IN LAST 30 DAYS: No <ABBY SUTTON - Last Filed: 06/11/19 23:03> <APOORVA GAMBINO - Last Filed: 06/12/19 01:25> - General Chief Complaint: Epigastric Pain Stated Complaint: ABDOMINAL PAIN Time Seen by Provider: 06/11/19 17:14 Primary Care Provider: AKHIL ESTEBAN PA [NO LOCAL MD] - Follow up as needed Notes: 84-year-old female presents emergency department complaining of epigastric pain and vomiting. Patient states that she ate food on Wednesday [employer] and then ate her leftovers again on and Wednesday and on Wednesday that was when the vomiting and the pain started, on Wednesday she did not eat any more greasy food and only had applesauce and her symptoms resolved but then they returned again t and radiated into her chest. Patient states that she has had similar pain before but no vomiting when she overeat back in April. Patient thought her pain was coming from her hiatal hernia and overeating. Has not yet had an upper GI or endoscopy to investigate this pain. Did previously have a CAT scan that demonstrated a hiatal hernia back in April. Patient has had a cholecystectomy. Patient also mentions that her stool has been a very dark black color. No history of GI bleed. No history of pancreatitis. (ABBY SUTTON) - Related Data Allergies/Adverse Reactions: No Known Allergies Allergy (Verified 06/11/19 15:46) Past Medical History - General Information source: Patient - Social History Smoking Status: Never Smoker Frequency of alcohol use: None Drug Abuse: None Family History: Reviewed & Not Pertinent Patient has suicidal ideation: No Patient has homicidal ideation: No - Past Medical History Cardiac Medical History: Reports: Hx Coronary Artery Disease - high cholesterol Denies: Hx Heart Attack, Hx Hypertension Pulmonary Medical History: Denies: Hx Asthma, Hx Bronchitis, Hx COPD, Hx Pneumonia Neurological Medical History: Denies: Hx Cerebrovascular Accident, Hx Seizures Renal/ Medical History: Denies: Hx Peritoneal Dialysis GI Medical History: Denies: Hx Hepatitis, Hx Hiatal Hernia, Hx Ulcer Musculoskeletal Medical History: Denies Hx Arthritis Infectious Medical History: Denies: Hx Hepatitis Past Surgical History: Reports: Hx Cholecystectomy. Denies: Hx Hysterectomy, Hx Mastectomy, Hx Open Heart Surgery, Hx Pacemaker - Immunizations Hx Diphtheria, Pertussis, Tetanus Vaccination: Yes <ABBY SUTTON - Last Filed: 06/11/19 23:03> Review of Systems - Review of Systems Constitutional: No symptoms reported Cardiovascular: See HPI, Chest pain - Radiating from her abdomen. Respiratory: No symptoms reported Gastrointestinal: See HPI -: Yes All other systems reviewed and negative <ABBY SUTTON - Last Filed: 06/11/19 23:03> Physical Exam <ABBY SUTTON - Last Filed: 06/11/19 23:03> - Vital signs Vitals: Temp Pulse Resp BP Pulse Ox 98.2 F 90 19 135/61 H 90 L 06/11/19 16:05 06/11/19 16:05 06/11/19 16:05 06/11/19 16:05 06/11/19 16:05 - Notes Notes: GENERAL: Leaning over the edge of the bed, dry heaving into a bag, occasional clear emesis. Appears uncomfortable, intermittently rubbing her stomach. HEAD: Normocephalic, atraumatic EYES: Pupils equal, round and reactive to light, extraocular movements intact. ENT: Oral mucosa moist, tongue midline. NECK: Full range of motion, supple, trachea midline. LUNGS: Clear to auscultation bilaterally, no wheezes, rales or rhonchi, no respiratory distress. HEART: Regular rate and rhythm, no murmurs, gallops, rubs. ABDOMEN: Soft, epigastric tenderness palpation, small amount of guarding, n ondistended, bowel sounds present in all 4 quadrants. EXTREMITIES: Moves all 4 extremities spontaneously, no edema, radial and dorsalis pedis pulses 2/4 bilaterally. No cyanosis. RECTAL: Soft brown stool, one nonthrombosed hemorrhoid, no obvious blood, heme positive. NEUROLOGICAL: Alert and oriented x3, normal speech. PSYCH: Appears uncomfortable but pleasant. SKIN: Warm, Dry, normal turgor, no rashes or lesions noted. (ABBY SUTTON) Course - Laboratory Result Diagrams: 06/11/19 17:50 06/11/19 17:50 <ABBY SUTTON - Last Filed: 06/11/19 23:03> - Laboratory Result Diagrams: 06/11/19 17:50 06/11/19 17:50 <APOORVA GAMBINO - Last Filed: 06/12/19 01:25> - Re-evaluation Re-evalutation: 06/11/19 21:03 CBC shows leukocytosis at 16.8, CMP shows elevated glucose at 184, calcium elevated at 10.3, CK elevated at 195, troponin negative, Hemoccult positive, lipase normal, acute abdominal series shows hiatal hernia but no other acute finding. Given the heme positive stool and the normal lipase I will perform a CT scan of the abdomen and pelvis to look for any signs of infection or infarction. Troponin will also be repeated. 06/11/19 21:04 Patient did have temporary relief from the GI cocktail. Pain has returned. 06/11/19 22:01 Repeat troponin negative. 06/11/19 23:04 CT scan is scheduled for 23:30, pain is actually completely resolved, no tenderness on palpation of the abdomen, has been able to drink her contrast, first bottle caused pain, second bottle has no pain. Care was transferred to Dr. Apoorva Gambino. He will follow-up on her CAT scan and decide final disposition. Family is aware that care has been transitioned. (ABBY SUTTON) 06/12/19 01:24 Evaluation patient is feeling improved. She looks well. She has no further nausea. Her pain is much improved. Further history it appears that she was on Prilosec up until this past week. She was told to stop it. Since then she is been having increasing epigastric abdominal pain and then tonight she became more severe and she started vomiting. CT scan shows that she does have a hiatal hernia which she knows about. The remainder of the CT scan does not show any concerning findings. No evidence of diverticulitis. Patient clinically looks very well and on reevaluation does not have much abdominal pain to palpation. At this time I feel she safe to be discharged home. I will have her start taking omeprazole again for the next 2 weeks and then switch to Pepcid. Also placed on Carafate. I informed her follow-up closely with her primary care doctor this week. Patient agrees with plan and will be discharged home. I strongly encouraged to return to ER if she has worsening pain, vomiting, fevers, blood in her stool, or any further concerns. Patient agrees with plan will be discharged home. Dictation of this chart was performed using voice recognition software; therefore, there may be some unintended grammatical errors. (APOORVA GAMBINO) - Vital Signs Vital signs: Temp Pulse Resp BP Pulse Ox 98.2 F 91 19 177/71 H 90 L 06/11/19 16:05 06/11/19 20:03 06/11/19 20:03 06/11/19 23:01 06/11/19 23:01 - Laboratory Laboratory results interpreted by me: 06/11/19 06/11/19 17:50 17:50 WBC 16.8 H Seg Neutrophils % 83.1 H Lymphocytes % 10.0 L Absolute Neutrophils 14.0 H Est GFR (Non-Af Amer) 56 L Glucose 184 H Calcium 10.3 H Creatine Kinase 195 H Discharge <ABBY SUTTON - Last Filed: 06/11/19 23:03> <APOORVA GAMBINO - Last Filed: 06/12/19 01:25> - Discharge Clinical Impression: Abdominal pain Qualifiers: Abdominal location: epigastric Qualified Code(s): R10.13 - Epigastric pain Condition: Good Disposition: HOME, SELF-CARE Additional Instructions: Your blood work did not show any concerning findings. Your CT scan showed a hiatal hernia but no other concerning findings. I suspect that most likely your pain is related to gastritis or nonbleeding ulcer in your stomach. This will cause pain when you eat and drink and also cause you to vomit. Please buy [id number] omeprazole. This is the generic of Prilosec. Please take 20 mg of omeprazole every day for 2 weeks. After 2 weeks you should switch to Pepcid 20 mg a day. I have prescribed Carafate. You can start taking the Carafate if you are not having improvement of your pain after 2-3 days of treatment with the omeprazole. Diet is extremely important in treating this. Please drink non-caffeinated nonacidic fluids for the next 24 hours. After 24 hours you can start eating food again. Please avoid anything that spicy, acidic, or fatty or fried. Please eat only very bland foods such as bread or rice. Please avoid smoking. Please avoid coffee and tea. Please return to the ER immediately if you have worsening pain, fevers, intractable vomiting, or if you ever have any vomiting of blood or black or tarry stools.Avoid any NSAID use such as advil, ibuprofen, motrin, aleve, or naprosyn. Tylenol is safe to take. Follow-up with your doctor in 2 days for reevaluation. Prescriptions: Sucralfate [Carafate] 1 gm PO ACHS 7 Days oral.susp Referrals: AKHIL ESTEBAN PA [NO LOCAL MD] - 06/13/19
--- NOTE | 2019-06-11 23:14 | EKG REPORT ---
SEVERITY:- NORMAL ECG - SINUS RHYTHM : Confirmed by: Alanna Baez MD 11-Jun-2019 23:12:36
--- NOTE | 2019-06-12 00:14 | RADIOLOGY REPORT (SQ) ---
EXAM DESCRIPTION: CT ABDOMEN PELVIS WITH IV CONTRAST COMPLETED DATE/TME: 06/11/2019 00:00 CLINICAL HISTORY: 84 years, Female, epigastric abdominal pain COMPARISON: Prior study from 04/06/2019 TECHNIQUE: Contrast enhanced CT of the abdomen/pelvis was performed. Coronal and sagittal reformations were created. Images stored on PACS. All CT scanners at this facility use dose modulation, iterative reconstruction, and/or weight based dosing when appropriate to reduce radiation dose to as low as reasonably achievable (ALARA). [facility]: Dose Right [facility]: CareDose [facility]: Dose Right [facility]: Teradose 4D [facility]: [employer] LIMITATIONS: None. FINDINGS: Limited evaluation of the lower chest reveals tiny bilateral pleural effusions with associated bibasilar atelectasis. The liver, spleen, pancreas, and both adrenal glands appear normal. The gallbladder is absent. Both kidneys enhance symmetrically. No hydronephrosis or hydroureter. The urinary bladder is collapsed, thus evaluation is limited. A few scattered colonic diverticula are noted. Small and large bowel otherwise appear normal in caliber without areas of focal wall thickening. No evidence of bowel obstruction. Appendix is normal. There is a small fat-containing umbilical hernia. In addition, there is a large hiatal hernia demonstrating both sliding-type and paraesophageal components. This appears unchanged in configuration from the previous examination dated 04/06/2019. The gastric antrum remains below the diaphragmatic hiatus with a normal orientation. Additionally, there is no evidence of gastric outlet obstruction. Calcifications are evident about the abdominal aorta and proximal iliac vessels. No lymphadenopathy is appreciated. There are no drainable fluid collections. Uterus and both ovaries show no suspicious abnormality. Bone windows show no destructive osseous lesions. Bilateral pars defects are noted at L5 with associated grade 1 anterolisthesis of L5 upon S1. IMPRESSION: No acute abnormality within the abdomen or pelvis. Large hiatal hernia demonstrating both sliding-type and paraesophageal components. No evidence of gastric outlet obstruction. 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 Tiny bilateral pleural effusions with associated bibasilar atelectasis. TECHNICAL DOCUMENTATION: Quality ID # 436: Final reports with documentation of one or more dose reduction techniques (e.g., Automated exposure control, adjustment of the mA and/or kV according to patient size, use of iterative reconstruction technique) copyright 2011 [employer]- All Rights Reserved
[2019-06-12] MEDS ORDERED: ONDANSETRON ODT 4 MG TAB (6 TAB/ER DISP) PO PRN (01:21)
[2019-06-12] MEDS ORDERED: PANTOPRAZOLE SODIUM 40 MG VIAL IV ONE (01:26)
[2019-06-12 01:46] VITALS: BP 133/63
== END 2019-06-12 01:46 | disposition home or self-care (01) ==
LOC: ER 15:45
DX: R10.13 Epigastric pain (principal); R11.10 Vomiting, unspecified; E78.00 Pure hypercholesterolemia, unspecified; Z90.49 Acquired absence of other specified parts of digestive tract
CPT/HCPCS: 93005; 99284; 96374; 96375; 36415; 82553; 82550; 83690; 85025; 80053; 84484; 74022; 74177; 93010; J3490; A9270 ×2; J1170; C9113; J2405; S0164

== ENCOUNTER → 2019-08-16 | Outpatient (CLI) | payer BC, MEDICARE ==
--- NOTE | 2019-08-16 10:26 | WOMENS IMAGING REPORT ---
EXAM DESCRIPTION: 3D SCREENING MAMMO BILAT COMPLETED DATE/TIME: 08/16/2019 9:55 am REASON FOR STUDY: Z12.31 ENCOUNTER FOR SCREENING MAMMOGRAM FOR MALIGNANT NEOPLASM OF BREAST Z12.31 ENCNTR SCREEN MAMMOGRAM FOR MALIGNANT NEOPLASM OF JENS Z78.0 ASYMPTOMATIC MENOPAUSAL STATE COMPARISON: None. EXAM PARAMETERS: Views: Standard craniocaudal and mediolateral oblique views of each breast recorded using digital acquisition and breast tomosynthesis. Read with the assistance of CAD. .[facility] - [employer] Version 9.2 LIMITATIONS: None. FINDINGS: No suspicious masses, suspicious calcifications or architectural distortion. No areas of c oncern. IMPRESSION: NEGATIVE MAMMOGRAM. BIRADS 1. BREAST DENSITY: b. There are scattered areas of fibroglandular density. BIRAD: ASSESSMENT: 1 NEGATIVE RECOMMENDATION: ROUTINE SCREENING COMMENT: The patient has been notified of the results by letter per MQSA requirements. Additional no tification policies are in place for contacting patient with suspicious or incomplete findings. Quality ID #225: The [employer] recommends an annual screening mammogram for women aged 40 years or over. This facility utilizes a reminder system to ensure that all patients receive reminder letters, and/or direct phone calls for appointments. This includes reminders for routine scr eening mammograms, diagnostic mammograms, or other Breast Imaging Interventions when appropriate. Th is patient will be placed in the appropriate reminder system. TECHNICAL DOCUMENTATION: FINDING NUMBER: (1) ASSESSMENT: (1) JOB ID: [id number] [employer]- All Rights Reserved Reading location - IP/workstation name: [email or web address]
--- NOTE | 2019-08-16 11:35 | WOMENS IMAGING REPORT ---
EXAM DESCRIPTION: BONE DENSITY HIP/SPINE COMPLETED DATE/TIME: 08/16/2019 9:55 am REASON FOR STUDY: Z78.0 ASYMPTOMATIC MENOPAUSAL STATE Z12.31 ENCNTR SCREEN MAMMOGRAM FOR MALIGNANT NEOPLASM OF JENS Z78.0 ASYMPTOMATIC MENOPAUSAL STATE COMPARISON: 08/29/2010 TECHNIQUE: Dual-Energy X-ray Absorptiometry (DEXA) of the AP Spine and Hip. LIMITATIONS: None. FINDINGS: LUMBAR SPINE: The bone mineral density (BMD) measured from L1-L4 in the AP projection correlates with a T-score of 1.5, which is normal as defined by the World Health Organization. There is been a 17% improvement si nce baseline and prior study. HIP: The bone mineral density (BMD) measured in the left hip correlates with a T-score of -2.4, which is o steopenia as defined by the World Health Organization. There has been a -2.7% drop since prior study and baseline. IMPRESSION: 1. LUMBAR SPINE: NORMAL. 2. HIP: OSTEOPENIA. COMMENT: The World Health Organization defines low BMD as follows: T-score: Normal: Greater than -1.0 Osteopenia: Between -1.0 and -2.5 Osteoporosis: Less than -2.5 without fractures Established osteoporosis: Less than -2.5 with fractures In general, you may wish to consider: Diagnosis Treatment Follow-up DEXA Normal BMD Prevention 2-3 years Osteopenia Prevention/Therapy 1-2 years Osteoporosis Therapy Yearly TECHNICAL DOCUMENTATION: JOB ID: [id number] [employer]- All Rights Reserved Reading location - IP/workstation name: [email or web address]
== END ==
LOC: WI 09:29
PROVIDERS: ATTEND Physician Assistant
DX: Z12.31 Encounter for screening mammogram for malignant neoplasm of breast (principal); Z78.0 Asymptomatic menopausal state; Z13.820 Encounter for screening for osteoporosis; M85.88 Other specified disorders of bone density and structure, other site
CPT/HCPCS: 77063; 77067; 77080

== ENCOUNTER → 2020-10-22 | Outpatient (CLI) | payer MEDICARE ==
--- NOTE | 2020-10-22 11:36 | WOMENS IMAGING REPORT ---
EXAM DESCRIPTION: BILAT SCREENING MAMMO W/CAD IMAGES COMPLETED DATE/TIME: 10/22/2020 9:26 am REASON FOR STUDY: Z12.31 ENCOUNTER FOR SCREENING MAMMOGRAM FOR MALIGNANT NEOPLASM OF BREAST Z12.31 ENCNTR SCREEN MAMMOGRAM FOR MALIGNANT NEOPLASM OF JENS COMPARISON: 2019 EXAM PARAMETERS: Standard craniocaudal and mediolateral oblique views of each breast recorded using digital acquisition. Read with the assistance of CAD. .[facility] - [employer] Version 9.2 LIMITATIONS: None. FINDINGS: No suspicious masses, suspicious calcifications or architectural distortion. No areas of c oncern. IMPRESSION: NEGATIVE MAMMOGRAM. BIRADS 1 BREAST DENSITY: b. There are scattered areas of fibroglandular density. BIRAD: ASSESSMENT: 1 NEGATIVE RECOMMENDATION: ROUTINE SCREENING COMMENT: The patient has been notified of the results by letter per MQSA requirements. Additional no tification policies are in place for contacting patient with suspicious or incomplete findings. Quality ID #225: The [place] [employer] recommends an annual screening mammogram for women aged 40 years or over. This facility utilizes a reminder system to ensure that all patients receive reminder letters, and/or direct phone calls for appointments. This includes reminders for routine scr eening mammograms, diagnostic mammograms, or other Breast Imaging Interventions when appropriate. Th is patient will be placed in the appropriate reminder system. TECHNICAL DOCUMENTATION: FINDING NUMBER: (1) ASSESSMENT: (1) JOB ID: [id number] [employer]- All Rights Reserved Reading location - IP/workstation name: [email or web address]
== END ==
LOC: WI 08:28
PROVIDERS: ATTEND Physician Assistant
DX: Z12.31 Encounter for screening mammogram for malignant neoplasm of breast (principal)
CPT/HCPCS: 77067